=== PATIENT | female | born 1960 | race Caucasian/White ===

== ENCOUNTER 2019-10-06 14:16 | Inpatient (IN) | payer SELFPAY ==
[2019-10-06] MEDS ORDERED: ALBUTEROL SO4 2.5/IPRATROPIUM 0.5 INH SOL 3 ML VIAL.NEB. NEB ONE ×3 (14:31→14:43)
[2019-10-06] MEDS ORDERED: methylPREDNISolone NA SUCC 125 MG/2 ML VIAL IVPB ONE (14:42)
[2019-10-06] MEDS ORDERED: MAGNESIUM SULF 50% (8.12 MEQ/2 ML-1 GM VIAL) ONE (14:42)
[2019-10-06] MEDS ORDERED: MAGNESIUM SULF 50% (8.12 MEQ/2 ML-1 GM VIAL) IVPB ONE (14:42)
[2019-10-06 15:03] LABS: BASO % 1.1 % (0-2.0); EOS % 4.5 % (0-4.5); HEMOGLOBIN 15.6 GM/dL (10.7-15.3); LYMPH % 39.7 % (8-40); MCH 29.2 pg (25.7-33.7); MCHC 32.6 g/dl (32.0-36.0); MEAN CELL VOLUME 89.5 fl (80-96); MEAN PLT VOLUME 8.6 fl (7.5-11.1); MONO % 6.8 % (3.8-10.2); NEUT % 47.9 % (42.8-82.8); PLATELET COUNT 285 K/MM3 (134-434); RBC 5.36 M/mm3 (3.60-5.2); RDW 16.3 % (11.6-15.6); WHITE BLOOD COUNT 18.2 K/mm3 (4.0-10.0)
[2019-10-06] MEDS ORDERED: ALBUTEROL SO4 0.083% IH SOL 2.5 MG/3 ML VIAL.NEB. NEB ONE ×2 (15:23)
[2019-10-06 15:39] LABS: ALBUMIN 3.9 g/dl (3.4-5.0); ALK PHOS 83 U/L (45-117); ANION GAP 5 MMOL/L (8-16); BILIRUBIN,TOTAL 0.2 mg/dL (0.2-1); BLOOD UREA NITROGEN 24.4 mg/dL (7-18); CALCIUM 9.3 mg/dL (8.5-10.1); CHLORIDE 106 mmol/L (98-107); CO2 28 mmol/L (21-32); CREATININE 1.3 mg/dL (0.55-1.3); GLUCOSE,RANDOM 223 mg/dL (74-106); POTASSIUM 4.2 mmol/L (3.5-5.1); SGOT/AST 22 U/L (15-37); SGPT/ALT 44 U/L (13-61); SODIUM 140 mmol/L (136-145); TOT PROT 7.3 g/dl (6.4-8.2)
[2019-10-06] MEDS ORDERED: methylPREDNISolone NA SUCC 125 MG/2 ML VIAL ONE (16:51)
--- NOTE | 2019-10-06 17:26 | PDOC ---
Documentation entered by Mode Dee SCRIBE, acting as scribe for Maida Valdovinos MD. Maida Valdovinos MD: This documentation has been prepared by the Leila lamb Xhesika, SCRIBE, under my direction and personally reviewed by me in its entirety. I confirm that the documentation accurately reflects all work, treatment, procedures, and medical decision making performed by me. History of Present Illness - General Chief Complaint: Asthma Stated Complaint: ASTHMA Time Seen by Provider: 10/06/19 14:31 History Source: Patient Exam Limitations: No Limitations - History of Present Illness Initial Comments: 10/06/19 14:42 The patient is a 59 year old female with a significant PMH of COPD and severe asthma who presents to the emergency department for SOB x2days. The patient notes she has been on steroids for the past month, recently finished taking her steroids 2 days ago and her SOB has worsened. The patient notes every time she finishes her course of steroids or decreases the dosage, she endorses worsening SOB. Patient denies chest pain. Patient denies changes in sputum, fevers, chills , cough, nausea, vomiting, diarrhea and constipation. Allergies: NKDA Past History - Past Medical History Allergies/Adverse Reactions: Allergies Allergy/AdvReac Type Severity Reaction Status Date / Time No Known Allergies Allergy Verified 10/06/19 14:36 Home Medications: Ambulatory Orders Alprazolam [Xanax] 0.5 mg PO ASDIR 10/06/19 Atorvastatin Calcium [Lipitor] 20 mg PO HS 10/06/19 Montelukast Na [Singulair -] 10 mg PO HS 10/06/19 Review of Systems - Review of Systems Able to Perform ROS?: Yes Comments:: 10/06/19 14:43 GENERAL/CONSTITUTIONAL: No fever or chills. No weakness. HEAD, EYES, EARS, NOSE AND THROAT: No change in vision. No ear pain or discharge. No sore throat. CARDIOVASCULAR: Yes: shortness of breat No chest pain. RESPIRATORY: Yeso cough, wheezing GASTROINTESTINAL: No nausea, vomiting, diarrhea or constipation. GENITOURINARY: No dysuria, frequency, or change in urination. MUSCULOSKELETAL: No joint or muscle swelling or pain. No neck or back pain. SKIN: No rash NEUROLOGIC: No headache, vertigo, loss of consciousness, or change in strength/ sensation. ENDOCRINE: No increased thirst. No abnormal weight change. HEMATOLOGIC/LYMPHATIC: No anemia, easy bleeding, or history of blood clots. ALLERGIC/IMMUNOLOGIC: No hives or skin allergy. *Physical Exam - Vital Signs Last Vital Signs Temp Pulse Resp BP Pulse Ox 97.8 F 130 H 26 H 160/103 H 80 L 10/06/19 14:36 10/06/19 14:36 10/06/19 14:36 10/06/19 14:36 10/06/19 14:36 - Physical Exam Comments: 10/06/19 14:43 GENERAL: The patient is in no acute distress. HEAD: Normal with no signs of trauma. EYES: PERRLA, EOMI, sclera anicteric, conjunctiva clear. ENT: Ears normal, nares patent, oropharynx clear without exudates. Moist mucous membranes. NECK: Normal range of motion, supple without lymphadenopathy, JVD, or masses. LUNGS:+expiratory wheezing throughout.no crackles. HEART:+ tachycardic. Regular rate and rhythm, normal S1 and S2 without murmur, rub or gallop. ABDOMEN: Soft, nontender, normoactive bowel sounds. No guarding, no rebound. No masses palpable. EXTREMITIES: Normal range of motion, no edema. No clubbing or cyanosis. No erythema, or tenderness. NEUROLOGICAL: Cranial nerves II through XII grossly intact. No focal neurological deficits. MUSCULOSKELETAL: Back non-tender to palpation, no CVA tenderness SKIN: Warm, Dry, normal turgor, no rashes or lesions noted. ED Treatment Course - LABORATORY CBC & Chemistry Diagram: 10/07/19 07:55 10/06/19 14:49 - ADDITIONAL ORDERS Additional order review: Laboratory Results 10/06/19 14:49 Sodium 140 Potassium 4.2 Chloride 106 Carbon Dioxide 28 Anion Gap 5 L BUN 24.4 H Creatinine 1.3 Est GFR (CKD-EPI)AfAm 51.64 Est GFR (CKD-EPI)NonAf 44.55 Random Glucose 223 H Calcium 9.3 Total Bilirubin 0.2 AST 22 ALT 44 Alkaline Phosphatase 83 Creatine Kinase 124 Troponin I < 0.02 Total Protein 7.3 Albumin 3.9 10/06/19 14:49 RBC 5.36 H MCV 89.5 MCHC 32.6 RDW 16.3 H MPV 8.6 Neutrophils % 47.9 Lymphocytes % 39.7 Monocytes % 6.8 Eosinophils % 4.5 Basophils % 1.1 - RADIOLOGY Radiology Studies Ordered: Category Date Time Status CHEST X-RAY PORTABLE* [RAD] Stat Radiology 10/06/19 14:42 Taken - Medications Given in the ED: ED Medications Discontinued Medications Generic Name Dose Route Start Last Admin Trade Name Freq PRN Reason Stop Dose Admin Albuterol Sulfate 1 amp 10/06/19 15:23 10/06/19 15:30 Ventolin 0.083% Nebulizer Soln - NEB 10/06/19 15:24 1 amp ONCE ONE Administration Albuterol/Ipratropium 1 amp 10/06/19 14:42 10/06/19 14:48 Duoneb - NEB 10/06/19 14:43 1 amp ONCE ONE Administration Albuterol/Ipratropium 1 amp 10/06/19 14:43 10/06/19 14:48 Duoneb - NEB 10/06/19 14:44 1 amp ONCE ONE Administration Magnesium Sulfate 2 gm 10/06/19 14:42 10/06/19 14:48 Magnesium Sulfate IVPB 10/06/19 14:43 2 gm ONCE ONE Administration Methylprednisolone Sodium Succinate 125 mg 10/06/19 14:42 10/06/19 17:01 Solu-Medrol - IVPB 10/06/19 14:43 125 mg ONCE ONE Administration Medical Decision Making - Medical Decision Making 10/06/19 17:52 This is a 59-year-old woman with a history of asthma/COPD, no prior intubations who for some reason has been unable to get off of steroids over the past 4 to 6 weeks. She presents the emergency department acutely short of breath She was previously on prednisone 5 mg twice daily and this was weaned down to 5 mg daily and then off 2 days ago. No upper respiratory infections No recent travel No fevers or chills Patient given epinephrine, Decadron, DuoNeb's Differential diagnosis includes but is not limited to: COPD exacerbation/asthma exacerbation Pneumonia/bronchitis CHF (less likely) We will do: Labs EKG Chest x-ray EKG: Sinus tachycardia, rate of 139 bpm Right axis deviation no ST elevation or depression, T waves upright There is an S wave in lead I no Q wave in lead III, no T wave inversion in lead III 10/06/19 17:57 10/06/19 17:58 Given Solu-Medrol, continue duo nebs, magnesium Patient breathing markedly improved Wheezing markedly improved 10/06/19 17:59 Laboratory Tests 10/06/19 10/06/19 14:49 14:49 WBC 18.2 H Hgb 15.6 H Hct 48.0 H Plt Count 285 Neutrophils % 47.9 Lymphocytes % 39.7 BUN 24.4 H Creatinine 1.3 Creatine Kinase 124 Troponin I < 0.02 Chest x-ray: No obvious pleural effusions, no consolidation, increased markings bilateral bases No cardiomegaly, no hilar congestion 10/06/19 17:59 Case reviewed with hospitalist. Request NON CONTRAST CT of the chest as well as ABG Both ordered CT pending Pt very anxious Demanding to go to a room, threatening to leave if she does not get a room Escalated to charge nurse Discharge - Discharge Information Problems reviewed: Yes Clinical Impression/Diagnosis: COPD exacerbation Condition: Fair - Admission Yes - Follow up/Referral - Patient Discharge Instructions - Post Discharge Activity
[2019-10-06] MEDS: methylPREDNISolone NA SUCC 125 MG/2 ML VIAL IVPB SCH (18:31)
--- NOTE | 2019-10-06 19:29 | HP ---
Admitting History and Physical - Primary Care Physician PCP: Denzel Velazco - Admission Chief Complaint: SOB History of Present Illness: This is a 59 y/o woman with a PMHx of COPD, Asthma, HLD. Who presents to the ED with increased SOB x 2days. Patient reports recently completing Prednisone taper 2 days ago. The patient notes she has been on steroids for the past month , recently finished taking her steroids 2 days ago and her SOB has worsened. The patient notes every time she finishes her course of steroids or decreases the dosage, she endorses worsening SOB. Patient denies chest pain. Patient denies changes in sputum, fevers, chills, cough, nausea, vomiting, diarrhea and constipation. History Source: Patient Limitations to Obtaining History: No Limitations - Past Medical History Cardiovascular: Yes: Hyperlipdemia Pulmonary: Yes: Asthma, COPD Psych: Yes: Anxiety - Past Surgical History Past Surgical History: Yes: None - Smoking History Smoking history: Current every day smoker Have you smoked in the past 12 months: Yes Aproximately how many cigarettes per day: 2 - Alcohol/Substance Use Hx Alcohol Use: No History of Substance Use: reports: None - Social History Usual Living Arrangement: Yes: Alone ADL: Independent History of Recent Travel: No Home Medications - Allergies Allergies/Adverse Reactions: Allergies Allergy/AdvReac Type Severity Reaction Status Date / Time No Known Allergies Allergy Verified 10/06/19 14:36 - Home Medications Home Medications: Ambulatory Orders Alprazolam [Xanax] 0.5 mg PO ASDIR 10/06/19 Atorvastatin Calcium [Lipitor] 20 mg PO HS 10/06/19 Montelukast Na [Singulair -] 10 mg PO HS 10/06/19 Family Medical History Family History: Unable to Obtain Review of Systems - Review of Systems Constitutional: reports: No Symptoms Eyes: reports: No Symptoms HENT: reports: No Symptoms Neck: reports: No Symptoms Cardiovascular: reports: Shortness of Breath Respiratory: reports: SOB, SOB on Exertion, Wheezing Gastrointestinal: reports: No Symptoms Genitourinary: reports: No Symptoms Breasts: reports: No Symptoms Reported Musculoskeletal: reports: No Symptoms Integumentary: reports: No Symptoms Neurological: reports: No Symptoms Endocrine: reports: No Symptoms Hematology/Lymphatic: reports: No Symptoms Psychiatric: reports: No Symptoms Pain Intensity: 0 Physical Examination Vital Signs: Vital Signs Temperature 97.8 F 10/06/19 14:36 Pulse Rate 120 H 10/06/19 16:40 Respiratory Rate 18 10/06/19 16:40 Blood Pressure 123/80 10/06/19 16:40 O2 Sat by Pulse Oximetry (%) 95 10/06/19 16:00 Constitutional: Yes: Anxious, Mild Distress, Obese Eyes: Yes: WNL, Conjunctiva Clear, EOM Intact, PERRL HENT: Yes: WNL, Atraumatic, Normocephalic Neck: Yes: WNL, Supple, Trachea Midline Cardiovascular: Yes: Tachycardia, S1, S2 Respiratory: Yes: Diminished, On Nasal O2, Rhonchi, SOB, SOB on Exertion, Wheezes Gastrointestinal: Yes: WNL, Normal Bowel Sounds, Soft, Abdomen, Obese ...Rectal Exam: Yes: WNL Renal/: Yes: WNL Breast(s): Yes: WNL Musculoskeletal: Yes: WNL Extremities: Yes: WNL Edema: No Peripheral Pulses WNL: Yes Neurological: Yes: WNL, Alert, Oriented, Cran Nerves II-XII Intact ...Motor Strength: WNL Psychiatric: Yes: WNL, Alert, Oriented Labs: CBC, BMP 10/06/19 14:49 10/06/19 14:49 Laboratory Results - last 24 hr 10/06/19 10/06/19 14:49 14:49 WBC 18.2 H RBC 5.36 H Hgb 15.6 H Hct 48.0 H MCV 89.5 MCH 29.2 MCHC 32.6 RDW 16.3 H Plt Count 285 MPV 8.6 Absolute Neuts (auto) 8.7 H Neutrophils % 47.9 Lymphocytes % 39.7 Monocytes % 6.8 Eosinophils % 4.5 Basophils % 1.1 Nucleated RBC % 0 Sodium 140 Potassium 4.2 Chloride 106 Carbon Dioxide 28 Anion Gap 5 L BUN 24.4 H Creatinine 1.3 Est GFR (CKD-EPI)AfAm 51.64 Est GFR (CKD-EPI)NonAf 44.55 Random Glucose 223 H Calcium 9.3 Total Bilirubin 0.2 AST 22 ALT 44 Alkaline Phosphatase 83 Creatine Kinase 124 Troponin I < 0.02 Total Protein 7.3 Albumin 3.9 Intake & Output 10/03/19 10/04/19 10/05/19 10/06/19 23:59 23:59 23:59 23:59 Weight 97.976 kg Current Medications Generic Name Dose Route Start Last Admin Trade Name Benitoq PRN Reason Stop Dose Admin Albuterol/Ipratropium 1 amp 10/06/19 20:00 10/06/19 20:20 Duoneb - NEB 1 amp RTID ALEX Administration Atorvastatin Calcium 20 mg 10/07/19 22:00 Lipitor - PO HS ALEX Heparin Sodium (Porcine) 5,000 unit 10/06/19 22:00 10/06/19 22:50 Heparin - SQ 5,000 unit BID ALEX Administration Methylprednisolone Sodium Succinate 40 mg 10/06/19 17:45 10/07/19 01:23 Solu-Medrol - IVPB 40 mg Q8H ALEX Administration Montelukast Sodium 10 mg 10/07/19 22:00 Singulair - PO HS ALEX Imaging - Results Chest X-ray: Image Reviewed Cat Scan: Report Reviewed, Image Reviewed EKG: Image Reviewed Problem List - Problems (1) COPD exacerbation Assessment/Plan: r/o PE vs Pneumonia Wells Score 4.5 PERC Rule 3 CTA ordered, not completed due to Cr 1.3 CT Chest report- no pneumothorax, no infiltrate, no effusion ABG ordered- patient admantly refused, per ED staff record Patient given Decadron and Epinephrine in field by EMS, likely causing Tachycardia Solumederol, Magnesium Sulfate, Duonebs given in ED Appreciate Pulmonology consult O2 Solumederol w taper Duonebs Monitor CBC, BMP Continue home meds Peak Flow Monitor vitals Code(s): J44.1 - CHRONIC OBSTRUCTIVE PULMONARY DISEASE W (ACUTE) EXACERBATION (2) HLD (hyperlipidemia) Assessment/Plan: stable Continue home med Monitor LFTs Code(s): E78.5 - HYPERLIPIDEMIA, UNSPECIFIED (3) Anxiety Assessment/Plan: stable Consider restart of Xanax, when respiratory status improves Code(s): F41.9 - ANXIETY DISORDER, UNSPECIFIED Assessment/Plan This is a 59 y/o woman with a PMHx of COPD, HLD. Admitted to Med Surg for COPD Exacerbation for further evaluation of their emergent condition. Plan: See Problem List FEN PO fluids as tolerated Replete lytes prn Low Na, Low Cholesterol Diet DVT ppx OOB SCDs Heparin SQ Dispo: Requires Inpatient Care Visit type - Emergency Visit Emergency Visit: Yes ED Registration Date: 10/06/19 Care time: The patient presented to the Emergency Department on the above date and was hospitalized for further evaluation of their emergent condition. - New Patient This patient is new to me today: Yes Date on this admission: 10/06/19 - Critical Care Critical Care patient: No
[2019-10-06] MEDS: ALBUTEROL SO4 2.5/IPRATROPIUM 0.5 INH SOL 3 ML VIAL.NEB. NEB SCH (20:20)
[2019-10-06 20:53] VITALS: BMI 37.0
[2019-10-06] MEDS: HEPARIN NA (PORCINE) 5,000 UNITS/ML 1ML VIAL SQ SCH (22:50)
[2019-10-07] MEDS: methylPREDNISolone NA SUCC 125 MG/2 ML VIAL IVPB SCH ×3 (01:23→19:31)
[2019-10-07] MEDS: ALBUTEROL SO4 2.5/IPRATROPIUM 0.5 INH SOL 3 ML VIAL.NEB. NEB SCH ×3 (07:30→21:00)
[2019-10-07 08:30] LABS: BASO % 0.5 % (0-2.0); EOS % 0.1 % (0-4.5); HEMATOCRIT 46.3 % (32.4-45.2); HEMOGLOBIN 15.2 GM/dL (10.7-15.3); LYMPH % 6.9 % (8-40); MCH 29.1 pg (25.7-33.7); MCHC 32.8 g/dl (32.0-36.0); MEAN CELL VOLUME 88.7 fl (80-96); MEAN PLT VOLUME 8.6 fl (7.5-11.1); MONO % 1.9 % (3.8-10.2); NEUT % 90.6 % (42.8-82.8); PLATELET COUNT 233 K/MM3 (134-434); RBC 5.22 M/mm3 (3.60-5.2)
[2019-10-07 09:06] LABS: BLOOD UREA NITROGEN 23.8 mg/dL (7-18); CALCIUM 9.4 mg/dL (8.5-10.1); MAGNESIUM 2.4 mg/dL (1.8-2.4); POTASSIUM 4.6 mmol/L (3.5-5.1)
[2019-10-07 10:00] LABS: ANISOCYTOSIS 0; MACROCYTOSIS 0; PLATELET ESTIMATE NORMAL
[2019-10-07] MEDS: HEPARIN NA (PORCINE) 5,000 UNITS/ML 1ML VIAL SQ SCH ×2 (10:32→21:01)
--- NOTE | 2019-10-07 12:05 | PN ---
Progress Note, Physician Chief Complaint: COPD Asthma History of Present Illness: Previous notes and events reviewed awake and alert NAD sts her breathing improved complain of productive cough leukocytosis afebrile - Current Medication List Current Medications: Active Medications Albuterol/Ipratropium (Duoneb -) 1 amp NEB RTID [facility] Last Admin: 10/07/19 07:30 Dose: 1 amp Atorvastatin Calcium (Lipitor -) 20 mg PO HS [facility] Heparin Sodium (Porcine) (Heparin -) 5,000 unit SQ BID [facility] Last Admin: 10/07/19 10:32 Dose: 5,000 unit Methylprednisolone Sodium Succinate (Solu-Medrol -) 40 mg IVPB Q8H [facility] Last Admin: 10/07/19 10:32 Dose: 40 mg Montelukast Sodium (Singulair -) 10 mg PO [facility] - Objective Vital Signs: Vital Signs Temperature 98.1 F 10/07/19 06:38 Pulse Rate 102 H 10/07/19 06:38 Respiratory Rate 20 10/07/19 06:38 Blood Pressure 125/77 10/07/19 06:38 O2 Sat by Pulse Oximetry (%) 95 10/06/19 16:00 Constitutional: Yes: No Distress, Calm Eyes: Yes: Conjunctiva Clear HENT: Yes: Atraumatic Cardiovascular: Yes: Regular Rate and Rhythm Respiratory: Yes: Regular, Diminished, On Nasal O2 Gastrointestinal: Yes: Normal Bowel Sounds, Soft Musculoskeletal: Yes: WNL Extremities: Yes: WNL Edema: No Neurological: Yes: Alert, Oriented Psychiatric: Yes: Alert, Oriented Labs: CBC, BMP 10/07/19 07:55 10/07/19 07:55 - ....Imaging X-ray: Report Reviewed Problem List - Problems (1) Anxiety Assessment/Plan: -Xanax TID prn Code(s): F41.9 - ANXIETY DISORDER, UNSPECIFIED (2) COPD exacerbation Assessment/Plan: -Pulm consult -Bronchodilators -Singulair -keep SpO2 >90% -O2 via NC -IV Medrol -CXR shows no sign of an acute process -Chest CT scan shows no evidence of pneumothorax, infiltrate, pleural effusion, mild right basilar and lingular discoid atelectasis/scarring, 0.8 x 0.3 cm pleural based nodule noted along the posterior medial aspect of right lower chest Code(s): J44.1 - CHRONIC OBSTRUCTIVE PULMONARY DISEASE W (ACUTE) EXACERBATION (3) HLD (hyperlipidemia) Assessment/Plan: -Atorvastatin Code(s): E78.5 - HYPERLIPIDEMIA, UNSPECIFIED Assessment/Plan see problem list dvt ppx
--- NOTE | 2019-10-07 12:17 | EKG ---
Test Reason : Blood Pressure : / mmHG Vent. Rate : 139 BPM Atrial Rate : 139 BPM P-R Int : 126 ms QRS Dur : 080 ms QT Int : 296 ms P-R-T Axes : 093 088 054 degrees QTc Int : 450 ms SINUS TACHYCARDIA NONSPECIFIC ST ABNORMALITY ABNORMAL ECG NO PREVIOUS ECGS AVAILABLE Confirmed by TAWNY ZURITA, KAREN ([id number]) on 10/07/2019 12:17:14 PM Referred By: Confirmed By:KAREN HECTOR MD
--- NOTE | 2019-10-07 15:01 | CON.PULM ---
Consult Consult Specialty:: PULMONARY Referred by:: Dr Velazco Reason for Consultation:: shortness of breath - History of Present Illness Chief Complaint: shortness of breath History of Present Illness: 59yo female with h/o hyperlipidemia, COPD who was admitted with sudden onset of shortness of breath after eating chocolate. Reports a nonproductive cough and chest tightness. She has been on steroid courses x 2 in the past month. Takes an inhaler but unsure which one. Denies fevers, chills or sweats. She is a long time smoker, started as a teenager, smoked 1 PPD but was down to 2 cigarettes/ day. She is a snorer, occasionally wakes up gasping for air. Has a dry mouth upon awakening and does not feel rested. Does report daytime somnolence. - History Source History Provided By: Patient, Medical Record Limitations to Obtaining History: No Limitations - Past Medical History Cardio/Vascular: Yes: Hyperlipdemia Pulmonary: Yes: Asthma, COPD ...: No Psych: Yes: Anxiety - Past Surgical History Past Surgical History: Yes: None - Alcohol/Substance Use Hx Alcohol Use: No History of Substance Use: reports: None - Smoking History Smoking history: Current every day smoker Have you smoked in the past 12 months: Yes Aproximately how many cigarettes per day: 2 - Social History ADL: Independent History of Recent Travel: No Home Medications - Allergies Allergies/Adverse Reactions: Allergies Allergy/AdvReac Type Severity Reaction Status Date / Time No Known Allergies Allergy Verified 10/06/19 14:36 - Home Medications Home Medications: Ambulatory Orders Alprazolam [Xanax] 0.5 mg PO ASDIR 10/06/19 Atorvastatin Calcium [Lipitor] 20 mg PO HS 10/06/19 Montelukast Na [Singulair -] 10 mg PO HS 10/06/19 Review of Systems - Review of Systems Constitutional: denies: Chills, Fever, Weakness Eyes: denies: Recent Change in Vision HENT: denies: Nasal Congestion, Throat Pain Neck: denies: Stiffness, Tenderness Cardiovascular: reports: Shortness of Breath. denies: Chest Pain, Palpitations Respiratory: reports: Cough, SOB, SOB on Exertion. denies: Hemoptysis, Wheezing Gastrointestinal: denies: Abdominal Pain, Nausea, Vomiting Genitourinary: denies: Dysuria, Hematuria Neurological: denies: Dizziness, Headache Endocrine: denies: Unexplained Weight Loss Physical Exam Vital Sings: Vital Signs Temperature 97.6 F 10/07/19 12:00 Pulse Rate 110 H 10/07/19 12:00 Respiratory Rate 18 10/07/19 12:00 Blood Pressure 140/74 10/07/19 12:00 O2 Sat by Pulse Oximetry (%) 95 10/06/19 16:00 Constitutional: Yes: Anxious Eyes: Yes: Conjunctiva Clear, EOM Intact HENT: Yes: Atraumatic, Normocephalic Neck: Yes: Supple, Trachea Midline Cardiovascular: Yes: Regular Rate and Rhythm Respiratory: Yes: Poor Air Entry, Wheezes ...Clubbing: No Gastrointestinal: Yes: Normal Bowel Sounds, Soft. No: Tenderness Edema: No Neurological: Yes: Alert, Oriented Labs: CBC, BMP 10/07/19 07:55 10/07/19 07:55 Imaging - Results Chest X-ray: Report Reviewed, Image Reviewed Cat Scan: Report Reviewed, Image Reviewed (subcentimeter nodule RLL) Problem List - Problems (1) COPD exacerbation Code(s): J44.1 - CHRONIC OBSTRUCTIVE PULMONARY DISEASE W (ACUTE) EXACERBATION Assessment/Plan Acute COPD Exacerbation Lung Nodule Hyperlipidemia Anxiety Likely Obstructive Sleep Apnea - IV medrol - inhaled bronchodilators standing and PRN - smoking cessation discussed - will need outpt f/u of lung nodule - DVT prophylaxis - will need outpt PFTs and NPSG Thank you for this consult Dann Severino MD
[2019-10-07] MEDS ORDERED: ALBUTEROL SO4 0.083% IH SOL 2.5 MG/3 ML VIAL.NEB. NEB PRN (15:06)
[2019-10-07] MEDS: guaiFENesin 600 MG TABLET.ER (FP) PO SCH ×2 (16:47→22:08)
[2019-10-07] MEDS: SODIUM CHLORIDE NASAL SPRAY 44 ML BOTTLE NS PRN (18:01)
[2019-10-07] MEDS ORDERED: methylPREDNISolone NA SUCC 40 MG/1 ML VIAL IVPUSH ONE (18:49)
[2019-10-07] MEDS: MONTELUKAST NA 10 MG TABLET PO SCH (21:01)
[2019-10-07] MEDS: ATORVASTATIN CA 20 MG TABLET (FP) PO SCH (22:08)
[2019-10-07] MEDS: ALPRAZolam 0.25 MG TABLET PO PRN (22:11)
[2019-10-08] MEDS: methylPREDNISolone NA SUCC 125 MG/2 ML VIAL IVPB SCH ×3 (01:25→18:48)
[2019-10-08] MEDS: ALBUTEROL SO4 2.5/IPRATROPIUM 0.5 INH SOL 3 ML VIAL.NEB. NEB SCH ×2 (07:41→14:30)
[2019-10-08 09:10] LABS: HEMATOCRIT 45.3 % (32.4-45.2); HEMOGLOBIN 14.7 GM/dL (10.7-15.3); MCH 28.7 pg (25.7-33.7); MCHC 32.4 g/dl (32.0-36.0); MEAN CELL VOLUME 88.5 fl (80-96); MEAN PLT VOLUME 8.5 fl (7.5-11.1); PLATELET COUNT 237 K/MM3 (134-434); RBC 5.11 M/mm3 (3.60-5.2); RDW 16.7 % (11.6-15.6); WHITE BLOOD COUNT 22.3 K/mm3 (4.0-10.0)
[2019-10-08 09:56] LABS: ALBUMIN 3.8 g/dl (3.4-5.0); BILIRUBIN,TOTAL 0.3 mg/dL (0.2-1); BLOOD UREA NITROGEN 26.1 mg/dL (7-18); CALCIUM 9.5 mg/dL (8.5-10.1); POTASSIUM 4.4 mmol/L (3.5-5.1); TOT PROT 7.2 g/dl (6.4-8.2)
--- NOTE | 2019-10-08 10:27 | PN ---
Progress Note, Physician Chief Complaint: COPD Asthma History of Present Illness: Previous notes and events reviewed awake and alert NAD sts her breathing is improving and complain of cough leukocytosis afebrile - Current Medication List Current Medications: Active Medications Albuterol Sulfate (Ventolin 0.083% Nebulizer Soln -) 1 amp NEB Q4H PRN PRN Reason: SHORT OF BREATH/WHEEZING Albuterol/Ipratropium (Duoneb -) 1 amp NEB RTID [facility] Last Admin: 10/08/19 07:41 Dose: 1 amp Alprazolam (Xanax -) 0.5 mg PO Q8H PRN PRN Reason: ANXIETY Last Admin: 10/07/19 22:11 Dose: 0.5 mg Atorvastatin Calcium (Lipitor -) 20 mg PO HS [facility] Last Admin: 10/07/19 22:08 Dose: 20 mg Guaifenesin (Mucinex -) 600 mg PO BID [facility] Last Admin: 10/07/19 22:08 Dose: 600 mg Heparin Sodium (Porcine) (Heparin -) 5,000 unit SQ BID [facility] Last Admin: 10/07/19 21:01 Dose: 5,000 unit Methylprednisolone Sodium Succinate (Solu-Medrol -) 40 mg IVPB Q8H [facility] Last Admin: 10/08/19 01:25 Dose: 40 mg Montelukast Sodium (Singulair -) 10 mg PO HS [facility] Last Admin: 10/07/19 21:01 Dose: 10 mg Sodium Chloride ([place]al [place] -) 2 spray NS Q8H PRN PRN Reason: NASAL CONGESTION Last Admin: 10/07/19 18:01 Dose: 2 spray - Objective Vital Signs: Vital Signs Temperature 97.7 F 10/08/19 09:00 Pulse Rate 94 H 10/08/19 09:00 Respiratory Rate 18 10/08/19 09:00 Blood Pressure 120/80 10/08/19 09:00 O2 Sat by Pulse Oximetry (%) 90 L 10/08/19 09:00 Constitutional: Yes: No Distress, Calm Eyes: Yes: Conjunctiva Clear HENT: Yes: Atraumatic Cardiovascular: Yes: Regular Rate and Rhythm Respiratory: Yes: Regular, Diminished, On Nasal O2 Gastrointestinal: Yes: Normal Bowel Sounds, Soft Musculoskeletal: Yes: WNL Extremities: Yes: WNL Edema: No Neurological: Yes: Alert, Oriented Psychiatric: Yes: Alert, Oriented Labs: CBC, BMP 10/08/19 08:10 10/08/19 08:10 Problem List - Problems (1) Anxiety Assessment/Plan: -Xanax TID prn Code(s): F41.9 - ANXIETY DISORDER, UNSPECIFIED (2) COPD exacerbation Assessment/Plan: -Pulm consult -Bronchodilators -Singulair -keep SpO2 >90% -O2 via NC -IV Medrol -Mucinex -CXR shows no sign of an acute process -Chest CT scan shows no evidence of pneumothorax, infiltrate, pleural effusion, mild right basilar and lingular discoid atelectasis/scarring, 0.8 x 0.3 cm pleural based nodule noted along the posterior medial aspect of right lower chest Code(s): J44.1 - CHRONIC OBSTRUCTIVE PULMONARY DISEASE W (ACUTE) EXACERBATION (3) HLD (hyperlipidemia) Assessment/Plan: -Atorvastatin Code(s): E78.5 - HYPERLIPIDEMIA, UNSPECIFIED (4) Leukocytosis Assessment/Plan: -WBC 22.3 -ID on board -afebrile Code(s): D72.829 - ELEVATED WHITE BLOOD CELL COUNT, UNSPECIFIED Assessment/Plan see problem list dvt ppx
[2019-10-08] MEDS: HEPARIN NA (PORCINE) 5,000 UNITS/ML 1ML VIAL SQ SCH ×2 (11:02→21:15)
[2019-10-08] MEDS: guaiFENesin 600 MG TABLET.ER (FP) PO SCH ×2 (11:05→21:16)
[2019-10-08] MEDS: SODIUM CHLORIDE NASAL SPRAY 44 ML BOTTLE NS PRN (11:05)
--- NOTE | 2019-10-08 13:16 | PN ---
Progress Note (short form) - Note Progress Note: PULMONARY States breathing better. Still with nonproductive cough. Was able to ambulate hallways. Vital Signs Period Temp Pulse Resp BP Sys/Fu Pulse Ox Last 24 Hr 97.4 F-98.0 F 90-113 18-22 120-132/74-83 90-95 Gen: NAD at rest Heart: RRR Lung: scattered wheezes Abd: soft, nontender Ext: no edema CBC, BMP 10/08/19 08:10 10/08/19 08:10 Active Medications Albuterol Sulfate (Ventolin 0.083% Nebulizer Soln -) 1 amp NEB Q4H PRN PRN Reason: SHORT OF BREATH/WHEEZING Albuterol/Ipratropium (Duoneb -) 1 amp NEB RTID [facility] Last Admin: 10/08/19 07:41 Dose: 1 amp Alprazolam (Xanax -) 0.5 mg PO Q8H PRN PRN Reason: ANXIETY Last Admin: 10/07/19 22:11 Dose: 0.5 mg Atorvastatin Calcium (Lipitor -) 20 mg PO HS [facility] Last Admin: 10/07/19 22:08 Dose: 20 mg Guaifenesin (Mucinex -) 600 mg PO BID [facility] Last Admin: 10/08/19 11:05 Dose: 600 mg Heparin Sodium (Porcine) (Heparin -) 5,000 unit SQ BID [facility] Last Admin: 10/08/19 11:02 Dose: Not Given Methylprednisolone Sodium Succinate (Solu-Medrol -) 40 mg IVPB Q8H [facility] Last Admin: 10/08/19 11:05 Dose: 40 mg Montelukast Sodium (Singulair -) 10 mg PO [facility] Last Admin: 10/07/19 21:01 Dose: 10 mg Sodium Chloride ([place] Nasal [place] -) 2 spray NS Q8H PRN PRN Reason: NASAL CONGESTION Last Admin: 10/08/19 11:05 Dose: 2 spray A/P Acute COPD Exacerbation Lung Nodule Hyperlipidemia Anxiety Likely Obstructive Sleep Apnea - continue medrol at current dose, can likely change to PO prednisone 40mg daily in AM and taper as outpt - inhaled bronchodilators standing and PRN - smoking cessation discussed - will need outpt f/u of lung nodule - DVT prophylaxis - will need outpt PFTs and NPSG Problem List - Problems (1) COPD exacerbation Code(s): Alejandra44.1 - CHRONIC OBSTRUCTIVE PULMONARY DISEASE W (ACUTE) EXACERBATION
--- NOTE | 2019-10-08 14:21 | PN ---
Progress Note (short form) - Note Progress Note: ID consult dictated imp/reccd 59 yo female smoker admitted with acute onset of wheezing and sob 10/06 no fevers or chills no sinus headaches no runny nose +postnasal drip noted to have lelukocytosis no fevers or chills no dysuria no diarrhea or vomiting chest ct - no infiltrate suspect leukocytosis secondary to stress/steroids will get blood cultures further management of COPD per pulmonary smoking cessation encouraged Problem List - Problems (1) Leukocytosis Code(s): D72.829 - ELEVATED WHITE BLOOD CELL COUNT, UNSPECIFIED (2) COPD exacerbation Code(s): J44.1 - CHRONIC OBSTRUCTIVE PULMONARY DISEASE W (ACUTE) EXACERBATION (3) Tobacco dependence Code(s): F17.200 - NICOTINE DEPENDENCE, UNSPECIFIED, UNCOMPLICATED
[2019-10-08] MEDS: ALBUTEROL SO4 0.083% IH SOL 2.5 MG/3 ML VIAL.NEB. NEB SCH (20:10)
[2019-10-08] MEDS: ATORVASTATIN CA 20 MG TABLET (FP) PO SCH (21:16)
[2019-10-08] MEDS: MONTELUKAST NA 10 MG TABLET PO SCH (21:16)
[2019-10-08] MEDS: BUDESONIDE/FORMETEROL FUMARATE 160/4.5 mcg INHALER IH SCH (22:32)
[2019-10-09] MEDS: methylPREDNISolone NA SUCC 125 MG/2 ML VIAL IVPB SCH ×2 (01:09→10:09)
[2019-10-09] MEDS: ALPRAZolam 0.25 MG TABLET PO PRN ×2 (01:09→21:26)
[2019-10-09] MEDS: ALBUTEROL SO4 0.083% IH SOL 2.5 MG/3 ML VIAL.NEB. NEB SCH ×3 (07:20→20:15)
--- NOTE | 2019-10-09 08:38 | CONS ---
DATE OF CONSULTATION: 10/08/2019 CONSULTATION REQUESTED BY: Denzel Velazco MD HISTORY OF PRESENT ILLNESS: The patient is a 59-year-old woman who is a smoker. About one year ago, she had an episode of shortness of breath and wheezing for which she was treated with prednisone and inhalers. She quit smoking for several months but then started again. She stopped using all of her inhalers as well. Then, about every two to three months, she has been having some shortness of breath and wheezing. Most recently, two months ago, she was seen in Dr. Velazco's office, given nebs and a 7-day course of prednisone with good improvement. Her symptoms recurred again. She had cut her cigarette smoking down to two cigarettes a day. She was placed on prednisone 5 mg a day and then bumped to 10 mg a day. She was still smoking one or two cigarettes a day. She woke up on October 06 feeling well with no fevers or chills. She went about her usual activities. She then ate some chocolate and developed the sudden onset of shortness of breath. She had chest tightness and a nonproductive cough. An ambulance was called. She came to the ER and was diffusely wheezing. She was treated with steroids and nebulizer treatment with good improvement and is feeling better. I am asked to see her because she has had a persistent leukocytosis. She just finished her steroids two days prior to this episode. PAST MEDICAL HISTORY: Notable for hyperlipidemia, asthma, some anxiety. PAST SURGICAL HISTORY: Negative. The last time she was in the hospital was 37 years ago when she had a baby. SOCIAL HISTORY: She is an active smoker; she smokes two cigarettes a day. She lives with her son. She has had no sick contacts. There has been no travel. She moved about two years ago into her current apartment which has carpeting which she reports is new. She has three cats as well. FAMILY HISTORY: Unremarkable. ALLERGIES: No known drug allergies. HOME MEDICATIONS: Xanax, Lipitor and Singulair. REVIEW OF SYSTEMS: She denies dysuria, nausea, vomiting or diarrhea. She has no abdominal or chest pain. Of note, in the last year, she has gained 20 pounds. PHYSICAL EXAMINATION: Vital Signs: Temperature 97.3, pulse 83, blood pressure 122/95, respiratory rate 18. HEENT: Normocephalic. Her eyes are anicteric. Neck: Supple. She has no thrush. Lungs: Diffuse wheezes. She has no cough. Heart: Regular rate and rhythm. Abdomen: Soft, nontender. Extremities: Without edema. : She has no suprapubic or CVA tenderness. SKIN: She has no rash or skin breakdown. LABORATORY DATA: White count is 22.3, hemoglobin is 14.5, platelets are 237. Chemistries: BUN and creatinine are 26 and 1.0 with normal LFTs. She had a CAT scan of her chest done in the emergency room that was notable for some atelectasis and scarring at the right base and lingula. No evidence of infiltrate. She has a 0.8- x 0.3-cm pleural-based nodule in the right lower chest. In summary, this is a 59-year-old woman admitted for a COPD exacerbation in the setting of active smoking. I suspect the leukocytosis is secondary to stress and steroids. We will get blood cultures for completeness. She has no signs of having any systemic illness. Further management of her COPD will be per pulmonary. Smoking cessation was encouraged. Please call back if needed. KEREN BECKER M.D. [id number]
--- NOTE | 2019-10-09 09:05 | PN ---
Progress Note, Physician Chief Complaint: COPD Asthma History of Present Illness: Previous notes and events reviewed awake and alert NAD complain of productive cough and chest tightness, felt better after nebulizer leukocytosis afebrile - Current Medication List Current Medications: Active Medications Albuterol Sulfate (Ventolin 0.083% Nebulizer Soln -) 1 amp NEB Q4H PRN PRN Reason: SHORT OF BREATH/WHEEZING Albuterol Sulfate (Ventolin 0.083% Nebulizer Soln -) 1 amp NEB RTID [facility] Last Admin: 10/09/19 07:20 Dose: 1 amp Alprazolam (Xanax -) 0.5 mg PO Q8H PRN PRN Reason: ANXIETY Last Admin: 10/09/19 01:09 Dose: 0.5 mg Atorvastatin Calcium (Lipitor -) 20 mg PO HS [facility] Last Admin: 10/08/19 21:16 Dose: 20 mg Budesonide/Formoterol Fumarate (Symbicort 160/4.5mcg -) 2 puff IH BID [facility] Last Admin: 10/08/19 22:32 Dose: 2 puff Guaifenesin (Mucinex -) 600 mg PO BID [facility] Last Admin: 10/08/19 21:16 Dose: 600 mg Heparin Sodium (Porcine) (Heparin -) 5,000 unit SQ BID [facility] Last Admin: 10/08/19 21:15 Dose: 5,000 unit Methylprednisolone Sodium Succinate (Solu-Medrol -) 40 mg IVPB Q8H [facility] Last Admin: 10/09/19 01:09 Dose: 40 mg Montelukast Sodium (Singulair -) 10 mg PO [facility] Last Admin: 10/08/19 21:16 Dose: 10 mg Sodium Chloride ([place] Nasal [place] -) 2 spray NS Q8H PRN PRN Reason: NASAL CONGESTION Last Admin: 10/08/19 11:05 Dose: 2 spray Tiotropium [place] (Spiriva Respimat) 2 puff IH DAILY [facility] - Objective Vital Signs: Vital Signs Temperature 97.8 F 10/09/19 06:32 Pulse Rate 88 10/09/19 06:32 Respiratory Rate 20 10/09/19 06:32 Blood Pressure 121/82 10/09/19 06:32 O2 Sat by Pulse Oximetry (%) 94 L 10/08/19 22:00 Constitutional: Yes: No Distress, Calm Eyes: Yes: Conjunctiva Clear HENT: Yes: Atraumatic Cardiovascular: Yes: Regular Rate and Rhythm Respiratory: Yes: Regular, On Nasal O2, Wheezes Gastrointestinal: Yes: Normal Bowel Sounds, Soft Musculoskeletal: Yes: Muscle Weakness Extremities: Yes: WNL Edema: No Neurological: Yes: Alert, Oriented Psychiatric: Yes: Alert, Oriented Labs: CBC, BMP 10/08/19 08:10 10/08/19 08:10 Problem List - Problems (1) Anxiety Assessment/Plan: -Xanax TID prn Code(s): F41.9 - ANXIETY DISORDER, UNSPECIFIED (2) COPD exacerbation Assessment/Plan: -Pulm consult -Bronchodilators -Singulair -keep SpO2 >90% -O2 via NC -IV Medrol -Mucinex -Spiriva -CXR shows no sign of an acute process -Chest CT scan shows no evidence of pneumothorax, infiltrate, pleural effusion, mild right basilar and lingular discoid atelectasis/scarring, 0.8 x 0.3 cm pleural based nodule noted along the posterior medial aspect of right lower chest Code(s): J44.1 - CHRONIC OBSTRUCTIVE PULMONARY DISEASE W (ACUTE) EXACERBATION (3) HLD (hyperlipidemia) Assessment/Plan: -Atorvastatin Code(s): E78.5 - HYPERLIPIDEMIA, UNSPECIFIED (4) Leukocytosis Assessment/Plan: -WBC 22.3 -ID on board -afebrile -BC pending -afebrile Code(s): D72.829 - ELEVATED WHITE BLOOD CELL COUNT, UNSPECIFIED Assessment/Plan see problem list dvt ppx
[2019-10-09] MEDS ORDERED: PT OWN MED DRAWER 7, Y5N ONE (09:16)
[2019-10-09] MEDS: HEPARIN NA (PORCINE) 5,000 UNITS/ML 1ML VIAL SQ SCH ×3 (10:08→21:21)
[2019-10-09] MEDS: guaiFENesin 600 MG TABLET.ER (FP) PO SCH ×2 (10:09→21:21)
[2019-10-09] MEDS: TIOTROPIUM BROMIDE 2.5 MCG (SPIRIVA) RESPIMAT INHALER IH SCH (10:09)
[2019-10-09] MEDS: BUDESONIDE/FORMETEROL FUMARATE 160/4.5 mcg INHALER IH SCH ×2 (10:09→21:21)
[2019-10-09] MEDS: LORATADINE 10 MG TABLET PO SCH (10:18)
--- NOTE | 2019-10-09 13:45 | PN ---
Progress Note, Physician History of Present Illness: pulmonary alert,still c/o sob - Current Medication List Current Medications: Active Medications Albuterol Sulfate (Ventolin 0.083% Nebulizer Soln -) 1 amp NEB Q4H PRN PRN Reason: SHORT OF BREATH/WHEEZING Albuterol Sulfate (Ventolin 0.083% Nebulizer Soln -) 1 amp NEB RTID [facility] Last Admin: 10/09/19 07:20 Dose: 1 amp Alprazolam (Xanax -) 0.5 mg PO Q8H PRN PRN Reason: ANXIETY Last Admin: 10/09/19 01:09 Dose: 0.5 mg Atorvastatin Calcium (Lipitor -) 20 mg PO HS [facility] Last Admin: 10/08/19 21:16 Dose: 20 mg Budesonide/Formoterol Fumarate (Symbicort 160/4.5mcg -) 2 puff IH BID [facility] Last Admin: 10/09/19 10:09 Dose: 2 puff Guaifenesin (Mucinex -) 600 mg PO BID [facility] Last Admin: 10/09/19 10:09 Dose: 600 mg Heparin Sodium (Porcine) (Heparin -) 5,000 unit SQ BID [facility] Last Admin: 10/09/19 10:20 Dose: Not Given Loratadine (Claritin -) 10 mg PO DAILY [facility] Last Admin: 10/09/19 10:18 Dose: 10 mg Methylprednisolone Sodium Succinate (Solu-Medrol -) 40 mg IVPB Q8H [facility] Last Admin: 10/09/19 10:09 Dose: 40 mg Montelukast Sodium (Singulair -) 10 mg PO HS [facility] Last Admin: 10/08/19 21:16 Dose: 10 mg Sodium Chloride ([place] Nasal [place] -) 2 spray NS Q8H PRN PRN Reason: NASAL CONGESTION Last Admin: 10/08/19 11:05 Dose: 2 spray Tiotropium [place] (Spiriva Respimat) 2 puff IH DAILY [facility] Last Admin: 10/09/19 10:09 Dose: 2 puff - Objective Vital Signs: Vital Signs Temperature 98.2 F 10/09/19 10:00 Pulse Rate 100 H 10/09/19 10:00 Respiratory Rate 18 10/09/19 10:00 Blood Pressure 131/73 10/09/19 10:00 O2 Sat by Pulse Oximetry (%) 94 L 10/09/19 10:00 Constitutional: Yes: Well Nourished, Calm Eyes: Yes: WNL HENT: Yes: WNL, Other Cardiovascular: Yes: Regular Rate and Rhythm, S1, S2 Respiratory: Yes: Wheezes (scattered niki wheezes) Gastrointestinal: Yes: Normal Bowel Sounds, Soft Extremities: Yes: WNL Edema: No Labs: CBC, BMP 10/08/19 08:10 10/08/19 08:10 Problem List - Problems (1) Lung nodule < 6cm on CT Code(s): R91.1 - SOLITARY PULMONARY NODULE (2) COPD exacerbation Code(s): J44.1 - CHRONIC OBSTRUCTIVE PULMONARY DISEASE W (ACUTE) EXACERBATION (3) Tobacco dependence Code(s): F17.200 - NICOTINE DEPENDENCE, UNSPECIFIED, UNCOMPLICATED Assessment/Plan A/P Acute COPD Exacerbation Lung Nodule Hyperlipidemia Anxiety Likely Obstructive Sleep Apnea - continue medrol q 12 ,prednisone 40 daily in am - inhaled bronchodilators standing and PRN - smoking cessation discussed - outpt f/u of lung nodule - DVT prophylaxis - will need outpt PFTs and NPSG Problem List - Problems (1) COPD exacerbation Code(s): J44.1 - CHRONIC OBSTRUCTIVE PULMONARY DISEASE W (ACUTE) EXACERBATION
[2019-10-09] MEDS: methylPREDNISolone NA SUCC 40 MG/1 ML VIAL IVPB SCH ×2 (15:01→21:21)
[2019-10-09] MEDS: ATORVASTATIN CA 20 MG TABLET (FP) PO SCH (21:21)
[2019-10-09] MEDS: MONTELUKAST NA 10 MG TABLET PO SCH (21:21)
--- NOTE | 2019-10-10 07:28 | PN ---
Progress Note, Physician Chief Complaint: COPD Asthma History of Present Illness: NAD feels a bit better today walked in the hallway yesterday, felt SOB - Current Medication List Current Medications: Active Medications Albuterol Sulfate (Ventolin 0.083% Nebulizer Soln -) 1 amp NEB Q4H PRN PRN Reason: SHORT OF BREATH/WHEEZING Albuterol Sulfate (Ventolin 0.083% Nebulizer Soln -) 1 amp NEB RTID [facility] Last Admin: 10/09/19 20:15 Dose: 1 amp Alprazolam (Xanax -) 0.5 mg PO Q8H PRN PRN Reason: ANXIETY Last Admin: 10/09/19 21:26 Dose: 0.5 mg Atorvastatin Calcium (Lipitor -) 20 mg PO [facility] Last Admin: 10/09/19 21:21 Dose: 20 mg Budesonide/Formoterol Fumarate (Symbicort 160/4.5mcg -) 2 puff IH BID [facility] Last Admin: 10/09/19 21:21 Dose: 2 puff Guaifenesin (Mucinex -) 600 mg PO BID [facility] Last Admin: 10/09/19 21:21 Dose: 600 mg Heparin Sodium (Porcine) (Heparin -) 5,000 unit SQ BID [facility] Last Admin: 10/09/19 21:21 Dose: 5,000 unit Loratadine (Claritin -) 10 mg PO DAILY [facility] Last Admin: 10/09/19 10:18 Dose: 10 mg Methylprednisolone Sodium Succinate (Solu-Medrol -) 40 mg IVPB BID [facility] Last Admin: 10/09/19 21:21 Dose: 40 mg Montelukast Sodium (Singulair -) 10 mg PO HS [facility] Last Admin: 10/09/19 21:21 Dose: 10 mg Sodium Chloride ([place] Nasal [place] -) 2 spray NS Q8H PRN PRN Reason: NASAL CONGESTION Last Admin: 10/08/19 11:05 Dose: 2 spray Tiotropium [place] (Spiriva Respimat) 2 puff IH DAILY [facility] Last Admin: 10/09/19 10:09 Dose: 2 puff - Objective Vital Signs: Vital Signs Temperature 97.8 F 10/10/19 06:00 Pulse Rate 93 H 10/10/19 06:00 Respiratory Rate 20 10/10/19 06:00 Blood Pressure 123/81 10/10/19 06:00 O2 Sat by Pulse Oximetry (%) 93 L 10/09/19 22:00 Constitutional: Yes: Well Nourished, No Distress, Calm, Obese Cardiovascular: Yes: Regular Rate and Rhythm Respiratory: Yes: Regular, On Nasal O2, SOB on Exertion, Wheezes (diffuse) Gastrointestinal: Yes: Normal Bowel Sounds, Soft, Abdomen, Obese Genitourinary: Yes: WNL Musculoskeletal: Yes: WNL Extremities: Yes: WNL Edema: No Peripheral Pulses WNL: Yes Neurological: Yes: Alert, Oriented Psychiatric: Yes: Alert, Oriented Labs: CBC, BMP 10/08/19 08:10 10/08/19 08:10 Assessment/Plan (1) Anxiety Assessment/Plan: -Xanax TID prn Code(s): F41.9 - ANXIETY DISORDER, UNSPECIFIED (2) COPD exacerbation Assessment/Plan: -Pulm consult -Bronchodilators -Singulair -keep SpO2 >90% -O2 via NC -IV Medrol -Mucinex -Spiriva -CXR shows no sign of an acute process -Chest CT scan shows no evidence of pneumothorax, infiltrate, pleural effusion, mild right basilar and lingular discoid atelectasis/scarring, 0.8 x 0.3 cm pleural based nodule noted along the posterior medial aspect of right lower chest Code(s): J44.1 - CHRONIC OBSTRUCTIVE PULMONARY DISEASE W (ACUTE) EXACERBATION (3) HLD (hyperlipidemia) Assessment/Plan: -Atorvastatin Code(s): E78.5 - HYPERLIPIDEMIA, UNSPECIFIED (4) Leukocytosis Assessment/Plan: -ID on board -afebrile -BC: Microbiology 10/08/19 14:45 Blood - Peripheral Venous Blood Culture - Preliminary NO GROWTH OBTAINED AFTER 24 HOURS, INCUBATION TO CONTINUE FOR 4 DAYS. 10/08/19 15:00 Blood - Peripheral Venous Blood Culture - Preliminary NO GROWTH OBTAINED AFTER 24 HOURS, INCUBATION TO CONTINUE FOR 4 DAYS. -afebrile Code(s): D72.829 - ELEVATED WHITE BLOOD CELL COUNT, UNSPECIFIED Assessment/Plan see problem list dvt ppx Will need pre and post ambulatory SpO2 before discharge
[2019-10-10] MEDS: ALBUTEROL SO4 0.083% IH SOL 2.5 MG/3 ML VIAL.NEB. NEB SCH ×3 (07:45→20:05)
[2019-10-10 08:03] LABS: HEMATOCRIT 46.6 % (32.4-45.2); MCH 28.6 pg (25.7-33.7); MCHC 32.3 g/dl (32.0-36.0); MEAN CELL VOLUME 88.5 fl (80-96); MEAN PLT VOLUME 8.6 fl (7.5-11.1); PLATELET COUNT 220 K/MM3 (134-434); RBC 5.26 M/mm3 (3.60-5.2); RDW 16.3 % (11.6-15.6); WHITE BLOOD COUNT 14.8 K/mm3 (4.0-10.0)
[2019-10-10 08:23] LABS: ALBUMIN 3.6 g/dl (3.4-5.0); BILIRUBIN,TOTAL 0.3 mg/dL (0.2-1); BLOOD UREA NITROGEN 27.6 mg/dL (7-18); CALCIUM 9.2 mg/dL (8.5-10.1); POTASSIUM 4.4 mmol/L (3.5-5.1); TOT PROT 6.8 g/dl (6.4-8.2)
[2019-10-10] MEDS: HEPARIN NA (PORCINE) 5,000 UNITS/ML 1ML VIAL SQ SCH ×3 (09:09→21:26)
[2019-10-10] MEDS: guaiFENesin 600 MG TABLET.ER (FP) PO SCH ×2 (09:09→21:26)
[2019-10-10] MEDS: LORATADINE 10 MG TABLET PO SCH (09:09)
[2019-10-10] MEDS: methylPREDNISolone NA SUCC 40 MG/1 ML VIAL IVPB SCH ×2 (09:09→21:26)
[2019-10-10] MEDS: TIOTROPIUM BROMIDE 2.5 MCG (SPIRIVA) RESPIMAT INHALER IH SCH (09:10)
[2019-10-10] MEDS: SODIUM CHLORIDE NASAL SPRAY 44 ML BOTTLE NS PRN (09:11)
[2019-10-10] MEDS: BUDESONIDE/FORMETEROL FUMARATE 160/4.5 mcg INHALER IH SCH ×2 (09:11→21:26)
--- NOTE | 2019-10-10 14:11 | PN ---
Progress Note, Physician History of Present Illness: pulmonary alert,comfortable,breathing better,less dyspneic - Current Medication List Current Medications: Active Medications Albuterol Sulfate (Ventolin 0.083% Nebulizer Soln -) 1 amp NEB Q4H PRN PRN Reason: SHORT OF BREATH/WHEEZING Albuterol Sulfate (Ventolin 0.083% Nebulizer Soln -) 1 amp NEB RTID [facility] Last Admin: 10/10/19 07:45 Dose: 1 amp Alprazolam (Xanax -) 0.5 mg PO Q8H PRN PRN Reason: ANXIETY Last Admin: 10/09/19 21:26 Dose: 0.5 mg Atorvastatin Calcium (Lipitor -) 20 mg PO HS [facility] Last Admin: 10/09/19 21:21 Dose: 20 mg Budesonide/Formoterol Fumarate (Symbicort 160/4.5mcg -) 2 puff IH BID [facility] Last Admin: 10/10/19 09:11 Dose: 2 puff Guaifenesin (Mucinex -) 600 mg PO BID [facility] Last Admin: 10/10/19 09:09 Dose: 600 mg Heparin Sodium (Porcine) (Heparin -) 5,000 unit SQ BID [facility] Last Admin: 10/10/19 09:18 Dose: Not Given Loratadine (Claritin -) 10 mg PO DAILY [facility] Last Admin: 10/10/19 09:09 Dose: 10 mg Methylprednisolone Sodium Succinate (Solu-Medrol -) 40 mg IVPB BID [facility] Last Admin: 10/10/19 09:09 Dose: 40 mg Montelukast Sodium (Singulair -) 10 mg PO [facility] Last Admin: 10/09/19 21:21 Dose: 10 mg Sodium Chloride ([place] Nasal [place] -) 2 spray NS Q8H PRN PRN Reason: NASAL CONGESTION Last Admin: 10/10/19 09:11 Dose: 2 spray Tiotropium [place] (Spiriva Respimat) 2 puff IH DAILY [facility] Last Admin: 10/10/19 09:10 Dose: 2 puff - Objective Vital Signs: Vital Signs Temperature 97.8 F 10/10/19 10:00 Pulse Rate 102 H 10/10/19 10:00 Respiratory Rate 20 10/10/19 10:00 Blood Pressure 129/85 10/10/19 10:00 O2 Sat by Pulse Oximetry (%) 93 L 10/10/19 10:00 Constitutional: Yes: Well Nourished, Calm Eyes: Yes: WNL HENT: Yes: WNL Neck: Yes: WNL Cardiovascular: Yes: Regular Rate and Rhythm, S1, S2 Respiratory: Yes: Wheezes (less wheezes bilaterally) Gastrointestinal: Yes: Normal Bowel Sounds, Soft Extremities: Yes: WNL Edema: No Labs: CBC, BMP 10/10/19 06:55 10/10/19 06:55 Problem List - Problems (1) Lung nodule < 6cm on CT Code(s): R91.1 - SOLITARY PULMONARY NODULE (2) COPD exacerbation Code(s): J44.1 - CHRONIC OBSTRUCTIVE PULMONARY DISEASE W (ACUTE) EXACERBATION (3) Tobacco dependence Code(s): F17.200 - NICOTINE DEPENDENCE, UNSPECIFIED, UNCOMPLICATED Assessment/Plan A/P Acute COPD Exacerbation Lung Nodule Hyperlipidemia Anxiety Likely Obstructive Sleep Apnea - continue medrol q 12 x one more day ,prednisone 40 daily in am - inhaled bronchodilators standing and PRN - smoking cessation discussed - outpt f/u of lung nodule - DVT prophylaxis - will need outpt PFTs and NPSG Problem List - Problems (1) COPD exacerbation Code(s): J44.1 - CHRONIC OBSTRUCTIVE PULMONARY DISEASE W (ACUTE) EXACERBATION
[2019-10-10] MEDS: ALPRAZolam 0.25 MG TABLET PO PRN (21:26)
[2019-10-10] MEDS: ATORVASTATIN CA 20 MG TABLET (FP) PO SCH (21:26)
[2019-10-10] MEDS: MONTELUKAST NA 10 MG TABLET PO SCH (21:26)
[2019-10-11] MEDS: ALBUTEROL SO4 0.083% IH SOL 2.5 MG/3 ML VIAL.NEB. NEB SCH ×3 (08:45→19:52)
[2019-10-11] MEDS ORDERED: PT OWN MED DRAWER 7, Y5N ONE (08:46)
[2019-10-11] MEDS: methylPREDNISolone NA SUCC 40 MG/1 ML VIAL IVPB SCH ×2 (09:01→21:51)
[2019-10-11] MEDS: LORATADINE 10 MG TABLET PO SCH (09:01)
[2019-10-11] MEDS: guaiFENesin 600 MG TABLET.ER (FP) PO SCH ×2 (09:01→21:51)
[2019-10-11] MEDS: SODIUM CHLORIDE NASAL SPRAY 44 ML BOTTLE NS PRN (09:06)
[2019-10-11] MEDS: TIOTROPIUM BROMIDE 2.5 MCG (SPIRIVA) RESPIMAT INHALER IH SCH (09:07)
[2019-10-11] MEDS: BUDESONIDE/FORMETEROL FUMARATE 160/4.5 mcg INHALER IH SCH ×2 (09:07→21:50)
[2019-10-11] MEDS: HEPARIN NA (PORCINE) 5,000 UNITS/ML 1ML VIAL SQ SCH ×2 (09:09→21:52)
--- NOTE | 2019-10-11 09:25 | PN ---
Progress Note, Physician Chief Complaint: COPD Asthma History of Present Illness: NAD feels a lot better today, denies any SOB walked in the hallway yesterday, no SOB on exertion Last SpO2 post ambulatory was 87%, would repeat - Current Medication List Current Medications: Active Medications Albuterol Sulfate (Ventolin 0.083% Nebulizer Soln -) 1 amp NEB Q4H PRN PRN Reason: SHORT OF BREATH/WHEEZING Albuterol Sulfate (Ventolin 0.083% Nebulizer Soln -) 1 amp NEB RTID [facility] Last Admin: 10/11/19 08:45 Dose: 1 amp Alprazolam (Xanax -) 0.5 mg PO Q8H PRN PRN Reason: ANXIETY Last Admin: 10/10/19 21:26 Dose: 0.5 mg Atorvastatin Calcium (Lipitor -) 20 mg PO [facility] Last Admin: 10/10/19 21:26 Dose: 20 mg Budesonide/Formoterol Fumarate (Symbicort 160/4.5mcg -) 2 puff IH BID [facility] Last Admin: 10/11/19 09:07 Dose: 2 puff Guaifenesin (Mucinex -) 600 mg PO BID [facility] Last Admin: 10/11/19 09:01 Dose: 600 mg Heparin Sodium (Porcine) (Heparin -) 5,000 unit SQ BID [facility] Last Admin: 10/11/19 09:09 Dose: Not Given Loratadine (Claritin -) 10 mg PO DAILY [facility] Last Admin: 10/11/19 09:01 Dose: 10 mg Methylprednisolone Sodium Succinate (Solu-Medrol -) 40 mg IVPB BID [facility] Last Admin: 10/11/19 09:01 Dose: 40 mg Montelukast Sodium (Singulair -) 10 mg PO HS [facility] Last Admin: 10/10/19 21:26 Dose: 10 mg Sodium Chloride ([place] Nasal [place] -) 2 spray NS Q8H PRN PRN Reason: NASAL CONGESTION Last Admin: 10/11/19 09:06 Dose: 2 spray Tiotropium [place] (Spiriva Respimat) 2 puff IH DAILY [facility] Last Admin: 10/11/19 09:07 Dose: 2 puff - Objective Vital Signs: Vital Signs Temperature 98.7 F 10/11/19 08:40 Pulse Rate 90 10/11/19 08:40 Respiratory Rate 20 10/11/19 08:40 Blood Pressure 144/92 10/11/19 08:40 O2 Sat by Pulse Oximetry (%) 93 L 10/10/19 22:00 Constitutional: Yes: Well Nourished, No Distress, Calm Cardiovascular: Yes: Regular Rate and Rhythm Respiratory: Yes: Regular, On Nasal O2, SOB on Exertion Gastrointestinal: Yes: Normal Bowel Sounds, Soft, Abdomen, Obese Genitourinary: Yes: WNL Musculoskeletal: Yes: WNL Extremities: Yes: WNL Edema: No Peripheral Pulses WNL: Yes Neurological: Yes: Alert, Oriented Psychiatric: Yes: Alert, Oriented Labs: CBC, BMP 10/10/19 06:55 10/10/19 06:55 Assessment/Plan (1) Anxiety Assessment/Plan: -Xanax TID prn Code(s): F41.9 - ANXIETY DISORDER, UNSPECIFIED (2) COPD exacerbation Assessment/Plan: -Pulm consult -Bronchodilators -Singulair -keep SpO2 >90% -O2 via NC -IV Medrol -Mucinex -Spiriva -CXR shows no sign of an acute process -Chest CT scan shows no evidence of pneumothorax, infiltrate, pleural effusion, mild right basilar and lingular discoid atelectasis/scarring, 0.8 x 0.3 cm pleural based nodule noted along the posterior medial aspect of right lower chest -Repeat Pre and post ambulatory SpO2 Code(s): J44.1 - CHRONIC OBSTRUCTIVE PULMONARY DISEASE W (ACUTE) EXACERBATION (3) HLD (hyperlipidemia) Assessment/Plan: -Atorvastatin Code(s): E78.5 - HYPERLIPIDEMIA, UNSPECIFIED (4) Leukocytosis Assessment/Plan: -ID on board -afebrile -BC: Microbiology 10/08/19 14:45 Blood - Peripheral Venous Blood Culture - Preliminary NO GROWTH OBTAINED AFTER 24 HOURS, INCUBATION TO CONTINUE FOR 4 DAYS. 10/08/19 15:00 Blood - Peripheral Venous Blood Culture - Preliminary NO GROWTH OBTAINED AFTER 24 HOURS, INCUBATION TO CONTINUE FOR 4 DAYS. -afebrile Code(s): D72.829 - ELEVATED WHITE BLOOD CELL COUNT, UNSPECIFIED Assessment/Plan see problem list dvt ppx Will need pre and post ambulatory SpO2 before discharge
--- NOTE | 2019-10-11 12:35 | PN ---
Progress Note, Physician Chief Complaint: pulmonary alert,less dyspneic,+ cough - Current Medication List Current Medications: Active Medications Albuterol Sulfate (Ventolin 0.083% Nebulizer Soln -) 1 amp NEB Q4H PRN PRN Reason: SHORT OF BREATH/WHEEZING Albuterol Sulfate (Ventolin 0.083% Nebulizer Soln -) 1 amp NEB RTID [facility] Last Admin: 10/11/19 08:45 Dose: 1 amp Alprazolam (Xanax -) 0.5 mg PO Q8H PRN PRN Reason: ANXIETY Last Admin: 10/10/19 21:26 Dose: 0.5 mg Atorvastatin Calcium (Lipitor -) 20 mg PO HS [facility] Last Admin: 10/10/19 21:26 Dose: 20 mg Budesonide/Formoterol Fumarate (Symbicort 160/4.5mcg -) 2 puff IH BID [facility] Last Admin: 10/11/19 09:07 Dose: 2 puff Guaifenesin (Mucinex -) 600 mg PO BID [facility] Last Admin: 10/11/19 09:01 Dose: 600 mg Heparin Sodium (Porcine) (Heparin -) 5,000 unit SQ BID [facility] Last Admin: 10/11/19 09:09 Dose: Not Given Loratadine (Claritin -) 10 mg PO DAILY [facility] Last Admin: 10/11/19 09:01 Dose: 10 mg Methylprednisolone Sodium Succinate (Solu-Medrol -) 40 mg IVPB BID [facility] Last Admin: 10/11/19 09:01 Dose: 40 mg Montelukast Sodium (Singulair -) 10 mg PO [facility] Last Admin: 10/10/19 21:26 Dose: 10 mg Sodium Chloride ([place] Nasal [place] -) 2 spray NS Q8H PRN PRN Reason: NASAL CONGESTION Last Admin: 10/11/19 09:06 Dose: 2 spray Tiotropium [place] (Spiriva Respimat) 2 puff IH DAILY [facility] Last Admin: 10/11/19 09:07 Dose: 2 puff - Objective Vital Signs: Vital Signs Temperature 98.7 F 10/11/19 08:40 Pulse Rate 90 10/11/19 08:40 Respiratory Rate 20 10/11/19 08:40 Blood Pressure 144/92 10/11/19 08:40 O2 Sat by Pulse Oximetry (%) 93 L 10/11/19 09:00 Constitutional: Yes: Well Nourished, Calm Eyes: Yes: WNL HENT: Yes: WNL Neck: Yes: WNL Cardiovascular: Yes: Regular Rate and Rhythm, S1, S2 Respiratory: Yes: Rhonchi (scattered rhonchi) Gastrointestinal: Yes: Normal Bowel Sounds, Soft Extremities: Yes: WNL Edema: No Labs: CBC, BMP 10/10/19 06:55 Problem List - Problems (1) Lung nodule < 6cm on CT Code(s): R91.1 - SOLITARY PULMONARY NODULE (2) COPD exacerbation Code(s): J44.1 - CHRONIC OBSTRUCTIVE PULMONARY DISEASE W (ACUTE) EXACERBATION (3) Tobacco dependence Code(s): F17.200 - NICOTINE DEPENDENCE, UNSPECIFIED, UNCOMPLICATED Assessment/Plan A/P Acute COPD Exacerbation Lung Nodule Hyperlipidemia Anxiety Likely Obstructive Sleep Apnea - prednisone 40 daily in am - inhaled bronchodilators standing and PRN - smoking cessation discussed - outpt f/u of lung nodule - DVT prophylaxis - will need outpt PFTs and NPSG Problem List - Problems (1) COPD exacerbation Code(s): J44.1 - CHRONIC OBSTRUCTIVE PULMONARY DISEASE W (ACUTE) EXACERBATION
[2019-10-11] MEDS ORDERED: ALPRAZolam 0.25 MG TABLET PO PRN (21:15)
[2019-10-11] MEDS: MONTELUKAST NA 10 MG TABLET PO SCH (21:51)
[2019-10-11] MEDS: ATORVASTATIN CA 20 MG TABLET (FP) PO SCH (21:51)
[2019-10-12] MEDS: ALBUTEROL SO4 0.083% IH SOL 2.5 MG/3 ML VIAL.NEB. NEB SCH (08:10)
[2019-10-12] MEDS ORDERED: PT OWN MED DRAWER 7, Y5N ONE (09:14)
[2019-10-12] MEDS: HEPARIN NA (PORCINE) 5,000 UNITS/ML 1ML VIAL SQ SCH (09:16)
[2019-10-12] MEDS: LORATADINE 10 MG TABLET PO SCH (09:16)
[2019-10-12] MEDS: guaiFENesin 600 MG TABLET.ER (FP) PO SCH (09:16)
[2019-10-12] MEDS: methylPREDNISolone NA SUCC 40 MG/1 ML VIAL IVPB SCH (09:16)
[2019-10-12] MEDS: SODIUM CHLORIDE NASAL SPRAY 44 ML BOTTLE NS PRN (09:17)
[2019-10-12] MEDS: TIOTROPIUM BROMIDE 2.5 MCG (SPIRIVA) RESPIMAT INHALER IH SCH (09:18)
[2019-10-12] MEDS: BUDESONIDE/FORMETEROL FUMARATE 160/4.5 mcg INHALER IH SCH (09:18)
--- NOTE | 2019-10-12 10:06 | DS ---
Physical Examination Vital Signs: Vital Signs Temperature 97.8 F 10/12/19 06:59 Pulse Rate 84 10/12/19 06:59 Respiratory Rate 20 10/12/19 06:59 Blood Pressure 134/83 10/12/19 06:59 O2 Sat by Pulse Oximetry (%) 92 L 10/11/19 22:00 Findings/Remarks: Active Medications Generic Name Dose Route Start Last Admin Trade Name Freq PRN Reason Stop Dose Admin Albuterol Sulfate 1 amp 10/07/19 15:06 Ventolin 0.083% Nebulizer Soln - NEB Q4H PRN SHORT OF BREATH/WHEEZING Albuterol Sulfate 1 amp 10/08/19 20:00 10/12/19 08:10 Ventolin 0.083% Nebulizer Soln - NEB 1 amp RTID ALEX Administration Alprazolam 0.5 mg 10/11/19 21:15 10/11/19 21:52 Xanax - PO 0.5 mg Q8H PRN Administration ANXIETY Atorvastatin Calcium 20 mg 10/07/19 22:00 10/11/19 21:51 Lipitor - PO 20 mg HS ALEX Administration Budesonide/Formoterol Fumarate 2 puff 10/08/19 22:00 10/12/19 09:18 Symbicort 160/4.5mcg - IH 2 puff BID ALEX Administration Guaifenesin 600 mg 10/07/19 15:13 10/12/19 09:16 Mucinex - PO 600 mg BID ALEX Administration Heparin Sodium (Porcine) 5,000 unit 10/06/19 22:00 10/12/19 09:16 Heparin - SQ Not Given BID ALEX Loratadine 10 mg 10/09/19 10:00 10/12/19 09:16 Claritin - PO 10 mg DAILY ALEX Administration Methylprednisolone Sodium Succinate 40 mg 10/09/19 14:45 10/12/19 09:16 Solu-Medrol - IVPB 40 mg BID ALEX Administration Montelukast Sodium 10 mg 10/07/19 22:00 10/11/19 21:51 Singulair - PO 10 mg HS ALEX Administration Sodium Chloride 2 spray 10/07/19 15:14 10/12/19 09:17 [place] Nasal [place] - NS 2 spray Q8H PRN Administration NASAL CONGESTION Tiotropium [place] 2 puff 10/09/19 10:00 10/12/19 09:18 Spiriva Respimat IH 2 puff DAILY ALEX Administration Microbiology 10/08/19 14:45 Blood - Peripheral Venous Blood Culture - Preliminary NO GROWTH OBTAINED AFTER 72 HOURS, INCUBATION TO CONTINUE FOR 2 DAYS. 10/08/19 15:00 Blood - Peripheral Venous Blood Culture - Preliminary NO GROWTH OBTAINED AFTER 72 HOURS, INCUBATION TO CONTINUE FOR 2 DAYS. Constitutional: Yes: No Distress, Calm Eyes: Yes: Conjunctiva Clear HENT: Yes: Atraumatic Cardiovascular: Yes: Regular Rate and Rhythm Respiratory: Yes: Regular, CTA Bilaterally Gastrointestinal: Yes: Normal Bowel Sounds, Soft Musculoskeletal: Yes: WNL Extremities: Yes: WNL Edema: No Neurological: Yes: Alert, Oriented Psychiatric: Yes: Alert, Oriented Labs: CBC, BMP 10/10/19 06:55 10/10/19 06:55 Discharge Summary Problems reviewed: Yes Reason For Visit: ACUTE EXACERBATION OF CHRONIC OBSTRUCTIVE PULMONAR Current Active Problems Anxiety (Acute) COPD exacerbation (Acute) HLD (hyperlipidemia) (Acute) Leukocytosis (Acute) Lung nodule < 6cm on CT (Acute) Tobacco dependence (Acute) Hospital Course: This is a 59 y/o woman with a PMHx of COPD, Asthma, HLD. Who presents to the ED with increased SOB x 2days. Patient reports recently completing Prednisone taper 2 days ago. The patient notes she has been on steroids for the past month , recently finished taking her steroids 2 days ago and her SOB has worsened. The patient notes every time she finishes her course of steroids or decreases the dosage, she endorses worsening SOB. Patient denies chest pain. Patient denies changes in sputum, fevers, chills, cough, nausea, vomiting, diarrhea and constipation. Radiology done and shows CXR shows no sign of an acute process and Chest CT scan shows no evidence of pneumothorax, infiltrate, pleural effusion, mild right basilar and lingular discoid atelectasis/scarring, 0.8 x 0.3 cm pleural based nodule noted along the posterior medial aspect of right lower chest. Received bronchodilators, IV steroids, and followed by Pulmonary. Respiratory status improved and patient will be discharged home. Plan of Treatment: Pre/post respiratory SpO2 to evaluate for home O2. Condition: Stable - Instructions Diet, Activity, Other Instructions: follow up with PMD in 1 week of discharge follow up with Pulmonary Dr Irby in 1 week take Prednisone as directed: take 40mg x 3 days, take 30mg x 3 days, take 20mg x 3 days, take 10mg x 3 days continue with medication as prescribed return to ER if develop severe pain, respiratory distress, chest pain Referrals: Denzel Velazco MD [Primary Care Provider] - Markus Irby MD [Staff Physician] - Disposition: HOME - Home Medications Comprehensive Discharge Medication List: Ambulatory Orders Alprazolam [Xanax] 0.5 mg PO ASDIR 10/06/19 Atorvastatin Calcium [Lipitor] 20 mg PO HS 10/06/19 Montelukast Na [Singulair -] 10 mg PO HS 10/06/19 Atorvastatin Ca [Lipitor] 20 mg PO HS tablet 10/11/19 Budesonide/Formeterol Fumarate [SYMBICORT 160/4.5mcg -] 2 puff IH BID #1 inhaler 10/11/19 Guaifenesin [Mucinex -] 600 mg PO BID tablet.er 10/11/19 Loratadine [Claritin -] 10 mg PO DAILY #30 tablet 10/11/19 Prednisone 10 mg PO ASDIR #42 tablet 10/11/19 Sodium Chloride Nasal [place] [[place] Nasal [place] -] 2 spray NS Q8H PRN spray 10/11/19 Tiotropium [place] [Spiriva Respimat] 2 puff IH DAILY #1 inhaler 10/11/19
--- NOTE | 2019-10-12 10:27 | PN ---
Progress Note (short form) - Note Progress Note: PULMONARY States breathing better. Ambulating without dyspnea. Vital Signs Period Temp Pulse Resp BP Sys/Fu Pulse Ox Last 24 Hr 97.4 F-97.9 F 84-100 20-20 124-144/83-88 92-92 Gen: NAD at rest Heart: RRR Lung: scattered wheezes Abd: soft, nontender Ext: no edema CBC, BMP 10/10/19 06:55 10/10/19 06:55 Active Medications Albuterol Sulfate (Ventolin 0.083% Nebulizer Soln -) 1 amp NEB Q4H PRN PRN Reason: SHORT OF BREATH/WHEEZING Albuterol Sulfate (Ventolin 0.083% Nebulizer Soln -) 1 amp NEB RTID [facility] Last Admin: 10/12/19 08:10 Dose: 1 amp Alprazolam (Xanax -) 0.5 mg PO Q8H PRN PRN Reason: ANXIETY Last Admin: 10/11/19 21:52 Dose: 0.5 mg Atorvastatin Calcium (Lipitor -) 20 mg PO HS [facility] Last Admin: 10/11/19 21:51 Dose: 20 mg Budesonide/Formoterol Fumarate (Symbicort 160/4.5mcg -) 2 puff IH BID [facility] Last Admin: 10/12/19 09:18 Dose: 2 puff Guaifenesin (Mucinex -) 600 mg PO BID [facility] Last Admin: 10/12/19 09:16 Dose: 600 mg Heparin Sodium (Porcine) (Heparin -) 5,000 unit SQ BID [facility] Last Admin: 10/12/19 09:16 Dose: Not Given Loratadine (Claritin -) 10 mg PO DAILY [facility] Last Admin: 10/12/19 09:16 Dose: 10 mg Methylprednisolone Sodium Succinate (Solu-Medrol -) 40 mg IVPB BID [facility] Last Admin: 10/12/19 09:16 Dose: 40 mg Montelukast Sodium (Singulair -) 10 mg PO HS [facility] Last Admin: 10/11/19 21:51 Dose: 10 mg Sodium Chloride ([place] Nasal [place] -) 2 spray NS Q8H PRN PRN Reason: NASAL CONGESTION Last Admin: 10/12/19 09:17 Dose: 2 spray Tiotropium [place] (Spiriva Respimat) 2 puff IH DAILY [facility] Last Admin: 10/12/19 09:18 Dose: 2 puff A/P Acute COPD Exacerbation Lung Nodule Hyperlipidemia Anxiety Likely Obstructive Sleep Apnea - prednisone taper - inhaled bronchodilators standing and PRN - smoking cessation discussed - will need outpt f/u of lung nodule - DVT prophylaxis - will need outpt PFTs and NPSG Problem List - Problems (1) COPD exacerbation Code(s): J44.1 - CHRONIC OBSTRUCTIVE PULMONARY DISEASE W (ACUTE) EXACERBATION
[2019-10-12 10:37] VITALS: PULSE 108
[2019-10-12 11:21] VITALS: BP 136/89; TEMP 98.7
== END 2019-10-12 11:15 | disposition home or self-care (01) | DRG 140 ==
LOC: JER 14:16 → JERBED 17:26 → J8W 19:56
PROVIDERS: ADMIT Internal Medicine; ATTEND Family Medicine
DX: J44.1 Chronic obstructive pulmonary disease with (acute) exacerbation (principal); J98.11 Atelectasis; E78.5 Hyperlipidemia, unspecified; F41.9 Anxiety disorder, unspecified; D72.829 Elevated white blood cell count, unspecified; R91.1 Solitary pulmonary nodule; E66.9 Obesity, unspecified; Z68.37 Body mass index [BMI] 37.0-37.9, adult; F17.210 Nicotine dependence, cigarettes, uncomplicated; J45.909 Unspecified asthma, uncomplicated; G47.33 Obstructive sleep apnea (adult) (pediatric)
CPT/HCPCS: 36415; 71045-TC-FY; 71250-TC; 80048; 80053; 82550; 83735; 84484; 85025; 85027; 87040; 93005; 93010; 94150; 94640; 94664; 94761; 99284-25; J1644

== ENCOUNTER 2022-02-28 04:18 | Day surgery (SDC) | payer OTHER ==
[~2022-02-28 04:18] MED LIST: ceFAZolin SODIUM 1 GM VIAL IVPB ONE
[2022-02-28 09:10] VITALS: BMI 29.5
[2022-02-28] MEDS ORDERED: LACTATED RINGERS SOLUTION 1,000 ML IV SCH (11:00)
[2022-02-28] MEDS ORDERED: COCAINE HCL 4% TOPICAL SOLUTION 4 ML BOTTLE TP ONE ×2 (11:12→11:56)
[2022-02-28] MEDS ORDERED: HYDROmorphone HCl 2 MG/ML VIAL ONE (11:15)
[2022-02-28] MEDS ORDERED: MIDAZOLAM HCL 2 MG/2 ML SINGLE DOSE VIAL ONE (11:15)
[2022-02-28] MEDS ORDERED: PROPOFOL 20 ML ONE ×2 (11:17)
[2022-02-28] MEDS ORDERED: ceFAZolin SODIUM 1 GM VIAL IVPB ONE (11:50)
[2022-02-28] MEDS ORDERED: BACITRACIN 15 GM TUBE TOPICAL OINTMENT ONE (12:49)
[2022-02-28] MEDS ORDERED: GLYCOPYRROLATE 0.2 MG/1 ML VIAL ONE (13:12)
[2022-02-28] MEDS ORDERED: NEOSTIGMINE METHYLSULFATE 0.5 MG/ML - 10 ML MDV ONE (13:12)
[2022-02-28] MEDS ORDERED: PHENYLEPHRINE HCL 10 MG/1 ML SINGLE DOSE VIAL ONE (13:12)
[2022-02-28] MEDS ORDERED: ACETAMINOPHEN INJECTION 100 ML IVPB ONE (13:53)
[2022-02-28] MEDS ORDERED: ACETAMINOPHEN 1000 MG/100 ML BAG IVPB ONE (14:45)
[2022-02-28 14:57] VITALS: TEMP 97.8
[2022-02-28] MEDS ORDERED: ONDANSETRON 4 MG/2 ML VIAL ONE (15:00)
[2022-02-28] MEDS ORDERED: ONDANSETRON 4 MG/2 ML VIAL IVPUSH ONE (15:05)
[2022-02-28] MEDS ORDERED: ONDANSETRON *ODT* 4 MG TABLET SL ONE ×2 (16:45→17:13)
[2022-02-28] MEDS ORDERED: ONDANSETRON *ODT* 4 MG TABLET ONE (16:55)
[2022-02-28 17:25] VITALS: BP 129/87; PULSE 86
== END 2022-02-28 17:00 | disposition home or self-care (01) ==
LOC: JASU-SURG 04:18
PROVIDERS: ATTEND Otolaryngology
PROC: 09TV8ZZ Resection of Left Ethmoid Sinus, Via Natural or Artificial Opening Endoscopic (ICD-10-PCS; 2022-02-28)
PROC: 09TU8ZZ Resection of Right Ethmoid Sinus, Via Natural or Artificial Opening Endoscopic (ICD-10-PCS; 2022-02-28)
PROC: 099R8ZZ Drainage of Left Maxillary Sinus, Via Natural or Artificial Opening Endoscopic (ICD-10-PCS; 2022-02-28)
PROC: 099Q8ZZ Drainage of Right Maxillary Sinus, Via Natural or Artificial Opening Endoscopic (ICD-10-PCS; 2022-02-28)
PROC: 09JK8ZZ Inspection of Nasal Mucosa and Soft Tissue, Via Natural or Artificial Opening Endoscopic (ICD-10-PCS; 2022-02-28)
PROC: 8E09XBZ Computer Assisted Procedure of Head and Neck Region (ICD-10-PCS; principal; 2022-02-28 10:30)
DX: J32.4 Chronic pansinusitis (principal); J33.9 Nasal polyp, unspecified
CPT/HCPCS: 88304-TC; 88305-TC; 94760; Q0162

== ENCOUNTER 2023-11-06 04:26 | Day surgery (SDC) | payer OTHER ==
[2023-11-05 14:44] VITALS: BMI 32.9
[2023-11-06] MEDS ORDERED: LIDOCAINE 1%/EPI 1:100000 (20 ML MULTI DOSE VIAL) ONE (09:03)
[2023-11-06] MEDS ORDERED: COCAINE HCL 4% TOPICAL SOLUTION 4 ML BOTTLE TP ONE ×2 (09:03→09:42)
[2023-11-06] MEDS ORDERED: ceFAZolin SODIUM 1 GM VIAL ONE (09:07)
[2023-11-06] MEDS ORDERED: LIDOCAINE HCL/PF 2% SDV 5ML VIAL ONE (09:07)
[2023-11-06] MEDS ORDERED: SODIUM CHLORIDE 0.9% P/F 10 ML VIAL IJ ONE (09:07)
[2023-11-06] MEDS ORDERED: DEXAMETHASONE SOD PHOSPHATE 4 MG/1 ML VIAL ONE (09:07)
[2023-11-06] MEDS ORDERED: ALBUTEROL SO4 HFA INHALER IH ONE (09:07)
[2023-11-06] MEDS ORDERED: ONDANSETRON 4 MG/2 ML VIAL ONE ×2 (09:07→15:44)
[2023-11-06] MEDS ORDERED: PROPOFOL 40 ML ONE (09:10)
[2023-11-06] MEDS ORDERED: ROCURONIUM BROMIDE 50 MG/5 ML SYRINGE ONE (09:11)
[2023-11-06] MEDS ORDERED: MIDAZOLAM HCL 2 MG/2 ML SINGLE DOSE VIAL ONE (09:12)
[2023-11-06] MEDS ORDERED: HYDROmorphone HCl 2 MG/ML VIAL ONE (09:16)
[2023-11-06] MEDS ORDERED: LIDOCAINE 1%/EPI 1:100000 (20 ML MULTI DOSE VIAL) IJ ONE (09:45)
[2023-11-06] MEDS ORDERED: ceFAZolin SODIUM 1 GM VIAL IVPB ONE (09:47)
[2023-11-06] MEDS ORDERED: BACITRACIN ZINC 15 GM TUBE TOPICAL OINTMENT ONE (11:01)
[2023-11-06] MEDS ORDERED: BACITRACIN ZINC 15 GM TUBE TOPICAL OINTMENT TP ONE (11:02)
[2023-11-06] MEDS ORDERED: ACETAMINOPHEN INJECTION 100 ML IVPB ONE (11:08)
[2023-11-06] MEDS ORDERED: METOPROLOL TARTRATE 5 MG/5 ML VIAL ONE (11:27)
[2023-11-06] MEDS ORDERED: oxyCODONE HCL 5 MG TABLET PO PRN (11:41)
[2023-11-06] MEDS ORDERED: LACTATED RINGERS SOLUTION 1,000 ML IV SCH (11:45)
[2023-11-06 14:12] VITALS: RESP 22
[2023-11-06 14:49] VITALS: BP 135/80; TEMP 97.5
[2023-11-06] MEDS ORDERED: ONDANSETRON 4 MG/2 ML VIAL IVPB ONE (15:45)
[2023-11-06 15:53] VITALS: PULSE 98
[2023-11-06] MEDS ORDERED: ONDANSETRON 4 MG/2 ML VIAL IVPUSH ONE (16:03)
== END 2023-11-06 16:43 | disposition home or self-care (01) ==
LOC: JASU-SURG 04:26
PROVIDERS: ATTEND Otolaryngology
PROC: 09DU0ZZ Extraction of Right Ethmoid Sinus, Open Approach (ICD-10-PCS; 2023-11-06)
PROC: 09DV0ZZ Extraction of Left Ethmoid Sinus, Open Approach (ICD-10-PCS; principal; 2023-11-06 09:00)
DX: J32.4 Chronic pansinusitis (principal); J33.9 Nasal polyp, unspecified
CPT/HCPCS: 87070; 87186; 94010; 94760

== ENCOUNTER 2024-09-09 09:49 | Inpatient (IN) | payer OTHER ==
[2024-09-09 09:58] VITALS: BMI 31.4
[2024-09-09] MEDS ORDERED: ALBUTEROL SO4 2.5/IPRATROPIUM 0.5 INH SOL 3 ML VIAL.NEB. NEB ONE ×3 (10:44→21:43)
[2024-09-09] MEDS ORDERED: ALPRAZolam 1 MG TABLET ONE (10:44)
[2024-09-09] MEDS ORDERED: methylPREDNISolone NA SUCC 125 MG/2 ML VIAL ONE (10:46)
[2024-09-09] MEDS: ALPRAZolam 1 MG TABLET PO PRN (11:00)
[2024-09-09] MEDS: methylPREDNISolone NA SUCC 125 MG/2 ML VIAL IVPB ONE (11:00)
[2024-09-09] MEDS: ALBUTEROL SO4 2.5/IPRATROPIUM 0.5 INH SOL 3 ML VIAL.NEB. NEB SCH ×2 (11:00→23:02)
[2024-09-09 11:56] LABS: BASO % 0.2 % (0-2.0); EOS % 3.4 % (0-4.5); HEMATOCRIT 46.8 % (32.4-45.2); HEMOGLOBIN 15.3 GM/dL (10.7-15.3); LYMPH % 22.8 % (8-40); MCH 28.7 pg (25.7-33.7); MCHC 32.8 g/dl (32.0-36.0); MEAN CELL VOLUME 87.6 fl (80-96); MEAN PLT VOLUME 8.2 fl (7.5-11.1); MONO % 6.7 % (3.8-10.2); NEUT % 66.9 % (42.8-82.8); PLATELET COUNT 249 10^3/uL (134-434); RBC 5.34 M/mm3 (3.60-5.2); RDW 15.5 % (11.6-15.6)
[2024-09-09 12:27] LABS: ALBUMIN 3.9 g/dl (3.4-5.0); BLOOD UREA NITROGEN 17.3 mg/dL (7-18); CALCIUM 9.5 mg/dL (8.5-10.1); CO2 24 mmol/L (21-32); GLUCOSE,RANDOM 96 mg/dL (74-106)
[2024-09-09 12:32] LABS: BILIRUBIN,TOTAL 0.6 mg/dL (0.2-1); SGOT/AST 25 U/L (15-37); SGPT/ALT 32 U/L (13-61)
[2024-09-09 12:34] LABS: ALK PHOS 102 U/L (45-117); TOT PROT 7.7 g/dl (6.4-8.2)
[2024-09-09 13:10] LABS: ANION GAP 9 mmol/L (4-13); CHLORIDE 107 mmol/L (98-107); POTASSIUM 4.3 mmol/L (3.5-5.1); SODIUM 139 mmol/L (136-145)
[2024-09-09] MEDS ORDERED: AMPICILLIN NA/SULBACTAM NA 3 GM/100 ML BAG IVPB ONE ×2 (14:24→21:31)
[2024-09-09] MEDS: AMPICILLIN NA/SULBACTAM NA 3 GM in SODIUM CHLORIDE 100 ML IVPB ONE (14:30)
[2024-09-09] MEDS: ALBUTEROL SO4 2.5/IPRATROPIUM 0.5 INH SOL 3 ML VIAL.NEB. NEB ONE (16:12)
[2024-09-09] MEDS ORDERED: methylPREDNISolone NA SUCC 40 MG/1 ML VIAL ONE (17:44)
[2024-09-09] MEDS: methylPREDNISolone NA SUCC 40 MG/1 ML VIAL IVPUSH SCH (18:02)
[2024-09-09] MEDS ORDERED: MONTELUKAST NA 10 MG TABLET ONE (21:31)
[2024-09-09] MEDS ORDERED: HEPARIN NA (PORCINE) 5,000 UNITS/ML 1ML VIAL ONE (21:31)
[2024-09-09] MEDS: MONTELUKAST NA 10 MG TABLET PO SCH (22:09)
[2024-09-09] MEDS: HEPARIN NA (PORCINE) 5,000 UNITS/ML 1ML VIAL SQ SCH (22:09)
[2024-09-09] MEDS: AMPICILLIN NA/SULBACTAM NA 3 GM in SODIUM CHLORIDE 100 ML IVPB SCH (22:11)
[2024-09-09] MEDS ORDERED: ATORVASTATIN CA 20 MG TABLET (FP) ONE (22:47)
[2024-09-09] MEDS ORDERED: ALPRAZolam 0.25 MG TABLET ONE (22:48)
[2024-09-09] MEDS: ALPRAZolam 0.25 MG TABLET PO PRN (23:03)
[2024-09-09] MEDS: ATORVASTATIN CA 20 MG TABLET (FP) PO SCH (23:03)
[2024-09-09] MEDS: SODIUM CHLORIDE NASAL SPRAY 44 ML BOTTLE NS SCH (23:08)
[2024-09-10] MEDS ORDERED: methylPREDNISolone NA SUCC 40 MG/1 ML VIAL ONE (01:12)
[2024-09-10] MEDS ORDERED: AMPICILLIN NA/SULBACTAM NA 3 GM/100 ML BAG IVPB ONE (04:08)
[2024-09-10 07:49] LABS: BASO % 0.1 % (0-2.0); HEMATOCRIT 45.2 % (32.4-45.2); HEMOGLOBIN 14.6 GM/dL (10.7-15.3); LYMPH % 8.5 % (8-40); MCH 28.3 pg (25.7-33.7); MCHC 32.4 g/dl (32.0-36.0); MEAN CELL VOLUME 87.4 fl (80-96); MEAN PLT VOLUME 8.2 fl (7.5-11.1); MONO % 3.1 % (3.8-10.2); NEUT % 88.3 % (42.8-82.8); PLATELET COUNT 266 10^3/uL (134-434); RBC 5.17 M/mm3 (3.60-5.2); RDW 15.2 % (11.6-15.6); WHITE BLOOD COUNT 14.1 K/mm3 (4.0-10.0)
[2024-09-10 09:57] LABS: POTASSIUM 4.2 mmol/L (3.5-5.1)
[2024-09-10] MEDS ORDERED: ASPIRIN COATED 81 MG TABLET.EC PO SCH ×2 (10:00)
[2024-09-10 10:09] LABS: ALBUMIN 3.9 g/dl (3.4-5.0); BILIRUBIN,TOTAL 0.4 mg/dL (0.2-1); BLOOD UREA NITROGEN 20.4 mg/dL (7-18); TOT PROT 7.8 g/dl (6.4-8.2)
[2024-09-10 10:11] LABS: CALCIUM 9.8 mg/dL (8.5-10.1)
[2024-09-10 10:12] LABS: CREATININE 1.1 mg/dL (0.55-1.3); MAGNESIUM 2.2 mg/dL (1.8-2.4)
[2024-09-10] MEDS: FLUTICASONE/UMECLIDIN/VILANTER(100-62.5-25 TRELEGY ELLIPTA) INAHLER IH SCH (11:19)
[2024-09-10 15:05] VITALS: RESP 18
[2024-09-10] MEDS: LEVALBUTEROL HCL 0.31 MG/3 ML VIAL.NEB IH PRN (15:16)
[2024-09-10] MEDS ORDERED: ARTIFICIAL TEARS OPHTHALMIC DROPS OU PRN (15:23)
[2024-09-10] MEDS: POTASSIUM CHLORIDE 10 MEQ in SODIUM CHLORIDE 0.45% 1,000 ML IVPB SCH (18:06)
[2024-09-10] MEDS: VANCOMYCIN/WATER FOR INJ (PEG) 1,000 MG/200 ML BAG IVPB SCH (18:08)
[2024-09-10] MEDS: CEFEPIME 1 GM in DEXTROSE 5%-WATER 100 ML IVPB SCH (18:18)
[2024-09-11] MEDS: VANCOMYCIN/WATER FOR INJ (PEG) 1,000 MG/200 ML BAG IVPB SCH (05:35)
[2024-09-11] MEDS: methylPREDNISolone NA SUCC 40 MG/1 ML VIAL IVPUSH SCH (10:10)
[2024-09-11] MEDS: ALPRAZolam 0.25 MG TABLET PO PRN (11:54)
[2024-09-13 13:56] VITALS: BP 135/76; PULSE 80; TEMP 97.7
== END 2024-09-13 14:03 | disposition home or self-care (01) | DRG 192 ==
LOC: JER 09:49 → JERBED 14:21 → J8W 09-10 06:53
PROVIDERS: ADMIT Family Medicine; ATTEND Internal Medicine
DX: J44.1 Chronic obstructive pulmonary disease with (acute) exacerbation (principal); J01.90 Acute sinusitis, unspecified; E78.5 Hyperlipidemia, unspecified; F41.9 Anxiety disorder, unspecified; R00.0 Tachycardia, unspecified; R09.02 Hypoxemia; I10 Essential (primary) hypertension; R91.1 Solitary pulmonary nodule
CPT/HCPCS: 36415; 70470-TC; 70487-TC; 71046-TC-FY; 71275-TC; 80053; 80061; 83036; 83735; 84443; 84484; 85025; 86140; 87040; 87070; 87077; 87186; 87205; 87633; 93005; 93010; 93306-TC; 94640; 99285-25; G0480; J1644; Q9967